=== PATIENT | female | born 1935 | race Caucasian/White ===

== ENCOUNTER → 2021-03-30 08:11 | Outpatient (CLI) | payer MEDICARE, SELFPAY ==
--- NOTE | ~2021-03-30 | US_ITS ---
EXAMINATION: US right upper quadrant EXAM DATE: 03/30/2021 08:38 INDICATION: Liver lesion on CT outside institution, reportedly low density lesion at the right hepati c dome 06/2020. TECHNIQUE: Multiple grayscale and Doppler images of the abdomen right upper quadrant were obtained (b y a technologist who performed the scan) and subsequently reviewed. There is no prior study for wesley ram. FINDINGS: The pancreatic head and body are normal in appearance. The pancreatic tail is not visualized. The l iver has normal echogenicity and contour. There are no focal liver lesions identified. There is no evidence of intrahepatic biliary duct dilation. Portal venous flow was seen in the hepatopedal, nor mal direction and has normal Doppler waveform. No right-sided hydronephrosis. There is a right renal cyst measuring 5 cm. Common bile duct measures 2 mm, which is normal. The gallbladder wall is normal in thickness, with ex pected amount of distention. No sonographic evidence of pericholecystic fluid. Multiple small galls tones. Technologist performing exam reports patient did not demonstrate sonographic Perez's sign. Please note that this sign is less reliable in patients who have received pain medication. IMPRESSION: 1. No liver lesion identified to correlate with reported CT abnormality. 2. Cholelithiasis. Reviewed, dictated and finalized at location B. [employer]
== END ==
PROVIDERS: PCP Physician Assistant; Visit Provider Physician Assistant
DX: K76.9 Liver disease, unspecified (principal); K80.20 Calculus of gallbladder without cholecystitis without obstruction
CPT/HCPCS: 76705

== ENCOUNTER 2021-10-27 09:21 | Emergency (ER) | payer MEDICARE, SELFPAY ==
[2021-10-27 09:55] VITALS: BP 135/59; PULSE 62; RESP 24; TEMP 36.7; O2SAT 97
--- NOTE | 2021-10-27 09:55 | ED.UPPEXIN ---
HPI - Extremity Injury (Upper) General Chief Complaint: Extremity Injury, Upper Stated Complaint: right wrist pain Time Seen by Provider: 10/27/21 09:55 Source: patient Mode of arrival: ambulatory Limitations: no limitations History of Present Illness HPI narrative: 86 y/o female presented for c/o right wrist pain after injury this morning. States 0630 she lost balance tried to grab a rocking chair, but fell back onto the right wrist. States pain is getting better throughout the morning. Currently rates 6/10. Endorses better range of motion now. No swelling or bruising, numbness, or tingling. Related Data Home Medications Medication Instructions Recorded Confirmed amlodipine 5 mg tablet 5 mg PO DAILY 10/27/21 10/27/21 atorvastatin 20 mg tablet 20 mg PO DAILY 10/27/21 10/27/21 levothyroxine 100 mcg tablet 100 mcg PO DAILY 10/27/21 10/27/21 Allergies Allergy/AdvReac Type Severity Reaction Status Date / Time No Known Allergies Allergy Verified 10/27/21 10:02 Review of Systems Review of Systems: CONSTITUTIONAL: Denies body aches, fever, chills CARDIOVASCULAR: Denies chest pain, palpitations, or edema. RESPIRATORY: Denies cough or dyspnea. SKIN: Denies rash, itching, or wounds. MUSCULOSKELETAL: Reports wrist pain NEUROLOGIC: Denies headache, numbness, tingling, or weakness. All systems reviewed & are unremarkable except as noted in HPI and below PMFSH Comments At time of signature, I have reviewed and agree with nursing past medical, surgical, social and family history unless otherwise noted. Please see nursing chart for further information. There is no relevant family history pertinent to the presenting complaint Exam Narrative: GENERAL: Well-appearing CHEST: Speaks in full sentences. No respiratory distress. HEART: Regular rate and rhythm. Normal and equal peripheral pulses. EXTREMITIES: Right volar surface wrist pain worse with flexion. Right hand has normal strength and sensation, limited range of motion at wrist consistent bilaterally; right wrist is nontender with palpation, no bruising or swelling; No open wounds or obvious deformity; pulse palpable and equal bilaterally, skin warm, dry, pink. Capillary refill less than 3 seconds. SKIN: Warm, dry, no rash. NEURO: Alert and oriented x3. PSYCH: Normal mood and affect Course Course Emergency Course: Patient is aware of diagnosis, understands and agrees to treatment plan. Anticipatory guidance given. Patient agrees to follow-up as directed and is aware of reasons to seek care at the emergency department. Portions of this record may have been created with voice recognition software Level of Care: Express Care Visit Vital Signs Vital signs: Reviewed Procedures Orthopedic Splinting/Casting right wrist: Upper Extremity Immobilizer: Connor wrap MDM - Extremity Injury (Upper) MDM Narrative Medical decision making narrative: Patient is advised we do not have x-ray imaging at this facility today. She is given the option to transfer or monitor symptoms and return for worsening pain, swelling or bruising. She elects to use an Connor wrap and supportive measures at this time. Given her PE, this appears to be an appropriate decision. No concern for tendon or nerve injury. She is accompanied by caregiver/family and will return should symptoms worsen. Differential Diagnosis Differential diagnosis: Likely sprain and strain of wrist and fracture of wrist Discharge Plan Discharge Clinical Impression: Strain of right wrist Patient Disposition: Home, Self-Care Condition: Stable Instructions: Wrist Sprain (ED) Additional Instructions: Rest and elevate the right arm; activity as tolerated - avoid lifting, pushing, pulling Apply ice 15-20 minute intervals several times a day Keep it wrapped with CONNOR or use a soft wrist splint Motrin 600mg -800mg every 8 hours, alternate with Tylenol 1000mg every 8 hours as needed No xray today. Follow up with you
== END 2021-10-27 10:11 | disposition home or self-care (01) ==
PROVIDERS: Emergency Provider Nurse Practitioner Family; PCP Physician Assistant
DX: S66.911A Strain of unspecified muscle, fascia and tendon at wrist and hand level, right hand, initial encounter (principal); W19.XXXA Unspecified fall, initial encounter; E78.00 Pure hypercholesterolemia, unspecified; I10 Essential (primary) hypertension; E03.9 Hypothyroidism, unspecified
CPT/HCPCS: 99212; G0463